=== PATIENT | female | born 1965 | race Caucasian/White ===

== ENCOUNTER 2018-02-02 23:00 | Emergency (ER) | payer MEDICAID ==
[~2018-02-02] VITALS: Ht 157.5 cm; Wt 55.3 kg
[2018-02-02 23:08] VITALS: BP_SYST 141
[2018-02-03] MEDS ORDERED: HYDROcodone/ACETAMIN 7.5-325 MG TAB PO ONE
[2018-02-03 00:51] VITALS: BP_SYST 134
== END 2018-02-03 00:51 | disposition home or self-care (01) ==
LOC: SED 23:00
DX: R07.89 Other chest pain (principal); R03.0 Elevated blood-pressure reading, without diagnosis of hypertension; E11.9 Type 2 diabetes mellitus without complications
CPT/HCPCS: 71100; 99284

== ENCOUNTER 2018-02-05 12:02 | Emergency (ER) | payer MEDICAID ==
[~2018-02-05] VITALS: Ht 157.5 cm; Wt 54.4 kg
[2018-02-05 12:10] VITALS: BP_SYST 133
[2018-02-05] MEDS ORDERED: fentaNYL CITRATE/PF 100 MCG/2 ML AMP IM ONE (13:00)
[2018-02-05 14:05] VITALS: BP_SYST 158
== END 2018-02-05 14:04 | disposition home or self-care (01) ==
LOC: SED 12:02
DX: S29.012A Strain of muscle and tendon of back wall of thorax, initial encounter (principal); W01.198A Fall on same level from slipping, tripping and stumbling with subsequent striking against other object, initial encounter; Y93.01 Activity, walking, marching and hiking; Y92.89 Other specified places as the place of occurrence of the external cause; Y99.8 Other external cause status
CPT/HCPCS: 72072; 96372; 99284; J3010; 99283

== ENCOUNTER 2018-02-20 16:18 | Emergency (ER) | payer MEDICAID ==
[~2018-02-20] VITALS: Ht 157.5 cm; Wt 61.2 kg
[2018-02-20 16:18] VITALS: BP_SYST 139
[2018-02-20 18:27] VITALS: BP_SYST 132
== END 2018-02-20 18:27 | disposition home or self-care (01) ==
LOC: SED 16:18
DX: L97.529 Non-pressure chronic ulcer of other part of left foot with unspecified severity (principal); E11.9 Type 2 diabetes mellitus without complications; R03.0 Elevated blood-pressure reading, without diagnosis of hypertension
CPT/HCPCS: 99284

== ENCOUNTER 2018-03-04 15:23 | Emergency (ER) | payer MEDICAID ==
[~2018-03-04] VITALS: Ht 157.5 cm; Wt 56.7 kg
[2018-03-04 15:34] VITALS: BP_SYST 119
--- NOTE | 2018-03-04 15:37 | NUR ---
ER Dr. PHAM at bedside examining patient.
--- NOTE | 2018-03-04 15:37 | NUR ---
Patient to ER bed 08 to gown for evaluation. Side rails up. Report given to RENÉ GUSTAFSON.
--- NOTE | 2018-03-04 15:47 | NUR ---
XRAY done at bedside.
--- NOTE | 2018-03-04 15:50 | NUR ---
Pt presented with left knee pain post mechanical fall at home, pain 7/10 with moderate knee swelling noted. No complaint of other pain, SOB, dizziness, nausea or vomiting. Pt a/o x 4, speaks And[place]ran and is cooperative.
--- NOTE | 2018-03-04 16:00 | NUR ---
Rod bandage applied to left knee, pulses and cap refil WNL. Patient has ability to move toes of affected foot and has sensation present to affected site. Skin color within normal limits. Applied for pain management control.
[2018-03-04] MEDS ORDERED: KETOROLAC TROMETHAMINE 30 MG VIAL IM ONE (16:15)
--- NOTE | 2018-03-04 16:25 | NUR ---
Medication administered. Pt tolerated well. No adverse reactions noted.
--- NOTE | 2018-03-04 16:35 | NUR ---
Patient given written and verbal discharge instructions and verbalizes understanding. ER MD discussed with patient the results and treatment provided. Patient in stable condition. ID arm band removed. Rx of toradol given. Patient educated on pain management and to follow up with PMD. Pain Scale 0/10. Opportunity for questions provided and answered. Medication side effect fact sheet provided.
[2018-03-04 16:37] VITALS: BP_SYST 135
== END 2018-03-04 16:35 | disposition home or self-care (01) ==
LOC: SED 15:23
DX: S80.02XA Contusion of left knee, initial encounter (principal); E11.9 Type 2 diabetes mellitus without complications; W01.0XXA Fall on same level from slipping, tripping and stumbling without subsequent striking against object, initial encounter; Y93.89 Activity, other specified; Y92.000 Kitchen of unspecified non-institutional (private) residence as the place of occurrence of the external cause; Y99.8 Other external cause status
CPT/HCPCS: 73564; 99284; J1885

== ENCOUNTER 2018-03-14 17:05 | Emergency (ER) | payer MEDICAID ==
[~2018-03-14] VITALS: Ht 157.5 cm; Wt 58.1 kg
[2018-03-14 17:19] VITALS: BP_SYST 131
[2018-03-14] MEDS ORDERED: MORPHINE 4 MG/ML INJ. SYRINGE IVP ONE (17:30)
[2018-03-14] MEDS ORDERED: ONDANSETRON HCL 4 MG/2 ML VIAL IVP ONE (17:30)
[2018-03-14] MEDS ORDERED: NACL 0.9% 1,000 ML IV ONE ×2 (17:45→19:30)
[2018-03-14 17:54] LABS: BASOPHILS % (AUTO) 0.4 % (0.0-2.0); EOSINOPHILS # (AUTO) 0.4 K/uL (0.0-0.4); EOSINOPHILS % (AUTO) 3.7 % (0.0-4.0); HEMATOCRIT 34.4 % (36-48); HEMOGLOBIN 11.3 g/dL (12.0-16.0); LYMPHOCYTES # (AUTO) 1.6 K/uL (1.0-5.5); LYMPHOCYTES % (AUTO) 15.7 % (20.5-51.5); MEAN CORPUSCULAR HEMOGLOBIN 32 pg (27-31); MEAN CORPUSCULAR HGB CONC 33 % (32-36); MEAN CORPUSCULAR VOLUME 98 fL (79.0-98.0); MONOCYTES # (AUTO) 0.5 K/uL (0.0-1.0); MONOCYTES % (AUTO) 4.9 % (1.7-9.3); NEUTROPHILS # (AUTO) 7.7 K/uL (1.8-7.7); NEUTROPHILS % (AUTO) 75.3 % (40.0-70.0); PLATELET COUNT (AUTO) 261 K/uL (130-430); RED CELL DISTRIBUTION WIDTH 11.4 % (9.0-15.0); WHITE BLOOD COUNT (AUTO) 10.2 K/uL (4.8-10.8)
[2018-03-14] MEDS ORDERED: INSULIN REGULAR, HUMAN 10 UNITS/0.1 ML INJ IVP ONE ×2 (18:00→19:30)
[2018-03-14 18:11] LABS: CALCIUM 9.7 mg/dL (8.4-11.0); CREATININE 1.03 mg/dL (0.55-1.30); POTASSIUM 4.4 mmol/L (3.5-5.1)
[2018-03-14 18:19] LABS: TOTAL BILIRUBIN 0.2 mg/dL (0.0-1.0)
[2018-03-14 18:20] LABS: ALBUMIN 3.4 g/dL (3.4-4.8)
[2018-03-14] MEDS ORDERED: GABAPENTIN 100 MG CAPSULE PO ONE (18:45)
[2018-03-14 21:02] VITALS: BP_SYST 133
== END 2018-03-14 21:02 | disposition home or self-care (01) ==
LOC: SED 17:05
DX: E11.621 Type 2 diabetes mellitus with foot ulcer (principal); L97.529 Non-pressure chronic ulcer of other part of left foot with unspecified severity; R03.0 Elevated blood-pressure reading, without diagnosis of hypertension
CPT/HCPCS: 36415; 73630; 80053; 83605; 85025; 87040; 96361; 96374; 96375; 96376; 99285; J2270; J2405; J7030; J1815

== ENCOUNTER 2018-03-18 08:04 | Emergency (ER) | payer MEDICAID ==
[~2018-03-18] VITALS: Ht 157.5 cm; Wt 58.1 kg
[2018-03-18 08:14] VITALS: BP_SYST 151
[2018-03-18] MEDS ORDERED: CLINDAMYCIN PHOSPHATE 300 MG/2 ML VIAL IM ONE (08:15)
[2018-03-18 09:13] VITALS: BP_SYST 151
== END 2018-03-18 09:10 | disposition home or self-care (01) ==
LOC: SED 08:04
DX: E11.621 Type 2 diabetes mellitus with foot ulcer (principal); L97.529 Non-pressure chronic ulcer of other part of left foot with unspecified severity
CPT/HCPCS: 96372; 99283; J3490

== ENCOUNTER 2018-04-19 10:48 | Emergency (ER) | payer MEDICAID ==
[~2018-04-19] VITALS: Ht 157.5 cm; Wt 59.0 kg
[2018-04-19 10:50] VITALS: BP_SYST 142
[2018-04-19] MEDS ORDERED: IBUPROFEN 600 MG TABLET PO ONE (13:45)
[2018-04-19 14:10] VITALS: BP_SYST 142
== END 2018-04-19 14:10 | disposition home or self-care (01) ==
LOC: SED 10:48
DX: M84.474A Pathological fracture, right foot, initial encounter for fracture (principal); E11.40 Type 2 diabetes mellitus with diabetic neuropathy, unspecified
CPT/HCPCS: 99284

== ENCOUNTER 2018-04-28 17:11 | Emergency (ER) | payer MEDICAID ==
[~2018-04-28] VITALS: Ht 157.5 cm; Wt 59.0 kg
[2018-04-28 17:51] VITALS: BP_SYST 151
--- NOTE | 2018-04-28 18:39 | NUR ---
Patient to ER bed 03 to gown for evaluation. Side rails up. Report given to SJ Arriola
--- NOTE | 2018-04-28 18:40 | NUR ---
Patient came in following her surgery for amputating her toe which was march 28, 2018. Patient says that during dressing change, they noticed a foul smell. Patient denies nausea, vomitting, diarrhea, fever. Eating/drinking appropriately. She states that she has been feeling a little lightheaded for the past few hours.NKDA. No other complaints/injuries.Will cont. to monitor.
--- NOTE | 2018-04-28 19:30 | NUR ---
ER at bedside examining patient.
--- NOTE | 2018-04-28 19:35 | NUR ---
Dr. Richardson observed fracture on R foot on assessment. Big toe is swollen and darker than pt's skin tone.
[2018-04-28] MEDS ORDERED: NACL 0.9% 1,000 ML IV ONE (19:45)
--- NOTE | 2018-04-28 20:43 | NUR ---
Patient medicated with IV fluids per MD orders. Patient tolerated well. Will cont. to monitor.
[2018-04-28 21:19] LABS: BASOPHILS # (AUTO) 0.1 K/uL (0.0-0.2); BASOPHILS % (AUTO) 0.9 % (0.0-2.0); EOSINOPHILS # (AUTO) 0.1 K/uL (0.0-0.4); EOSINOPHILS % (AUTO) 1.8 % (0.0-4.0); HEMATOCRIT 36.2 % (36-48); HEMOGLOBIN 11.9 g/dL (12.0-16.0); LYMPHOCYTES # (AUTO) 2.3 K/uL (1.0-5.5); LYMPHOCYTES % (AUTO) 34.9 % (20.5-51.5); MEAN CORPUSCULAR HEMOGLOBIN 31 pg (27-31); MEAN CORPUSCULAR HGB CONC 33 % (32-36); MEAN CORPUSCULAR VOLUME 96 fL (79.0-98.0); MONOCYTES # (AUTO) 0.4 K/uL (0.0-1.0); MONOCYTES % (AUTO) 6.2 % (1.7-9.3); NEUTROPHILS # (AUTO) 3.6 K/uL (1.8-7.7); NEUTROPHILS % (AUTO) 56.2 % (40.0-70.0); PLATELET COUNT (AUTO) 227 K/uL (130-430); RED BLOOD CELL COUNT(AUTO) 3.78 MIL/uL (4.2-6.2); RED CELL DISTRIBUTION WIDTH 12.8 % (9.0-15.0); WHITE BLOOD COUNT (AUTO) 6.5 K/uL (4.8-10.8)
[2018-04-28 21:20] LABS: CALCIUM 10.2 mg/dL (8.4-11.0); CREATININE 1.02 mg/dL (0.55-1.30); POTASSIUM 3.5 mmol/L (3.5-5.1)
[2018-04-28 21:25] LABS: ALBUMIN 3.6 g/dL (3.4-4.8); TOTAL BILIRUBIN 0.5 mg/dL (0.0-1.0)
--- NOTE | 2018-04-28 21:31 | NUR ---
Alexis feliciano in [facility] - 04/28/18 at 2226 by [email or web address] Blood cultures and lactic retrieved.
[2018-04-28 21:32] LABS: PROTHROMBIN TIME 9.7 SECS (9.5-12.5)
[2018-04-28 22:13] VITALS: BP_SYST 151
--- NOTE | 2018-04-28 22:13 | NUR ---
Patient given written and verbal discharge instructions and verbalizes understanding. ER MD Dr. Richardson discussed with patient the results and treatment provided. Patient in stable condition. ID arm band removed. IV catheter removed intact and dressing applied, no active bleeding. Patient educated on pain management and to follow up with PMD within 2-3 days. Pain Scale 0/10. Opportunity for questions provided and answered. Medication side effect fact sheet provided.
== END 2018-04-28 22:13 | disposition home or self-care (01) ==
LOC: SED 17:11
DX: S98.132A Complete traumatic amputation of one left lesser toe, initial encounter (principal); E11.40 Type 2 diabetes mellitus with diabetic neuropathy, unspecified; R03.0 Elevated blood-pressure reading, without diagnosis of hypertension; X58.XXXA Exposure to other specified factors, initial encounter; Y93.89 Activity, other specified; Y92.89 Other specified places as the place of occurrence of the external cause; Y99.8 Other external cause status
CPT/HCPCS: 36415; 71045; 73660; 80053; 83605; 85025; 85610; 85730; 87040; 93005; 99285; J7030